=== PATIENT | male | born 1985 | race Two or more races ===

== ENCOUNTER 2017-07-19 03:21 | Emergency (ER) | payer SELFPAY ==
[~2017-07-19] VITALS: Ht 175.3 cm; Wt 79.9 kg
[2017-07-19 03:23] VITALS: BP 136/89
[2017-07-19] MEDS ORDERED: LIDOCAINE 1%, 20ML ONE (03:35)
[2017-07-19] MEDS ORDERED: DIPH,PERTUSS(ACELL),TET VAC/PF 0.5 ML IM-VACC ONE ×2 (03:58→04:00)
[2017-07-19] MEDS ORDERED: BACITRACIN ZINC OINT 500U/GM, 0.9 GM ONE (03:58)
[2017-07-19] MEDS ORDERED: LIDOCAINE 1%, 20ML INFIL ONE (04:00)
== END 2017-07-19 04:11 | disposition home or self-care (01) ==
LOC: ED 04:05
DX: S01.21XA Laceration without foreign body of nose, initial encounter (principal); W50.0XXA Accidental hit or strike by another person, initial encounter; Y93.89 Activity, other specified; Y92.89 Other specified places as the place of occurrence of the external cause; Y99.9 Unspecified external cause status
CPT/HCPCS: 12011; 90471; 90715

== ENCOUNTER 2017-08-14 13:30 | Emergency (ER) | payer SELFPAY ==
[~2017-08-14] VITALS: Ht 175.3 cm; Wt 81.8 kg
[2017-08-14 13:37] VITALS: BP 119/83
[2017-08-14] MEDS ORDERED: LIDOCAINE 1%, 20ML ONE (14:17)
[2017-08-14] MEDS ORDERED: LIDOCAINE 1%, 20ML SQ ONE (14:30)
[2017-08-14] MEDS ORDERED: BACITRACIN ZINC OINT 500U/GM, 0.9 GM ONE (14:41)
== END 2017-08-14 14:57 | disposition home or self-care (01) ==
LOC: ED 14:45
DX: S01.111A Laceration without foreign body of right eyelid and periocular area, initial encounter (principal); W51.XXXA Accidental striking against or bumped into by another person, initial encounter; Y93.71 Activity, boxing; Y99.8 Other external cause status; Y92.89 Other specified places as the place of occurrence of the external cause
CPT/HCPCS: 12011; 99283